=== PATIENT | female | born 1950 | race American Indian/Alaskan Native ===

== ENCOUNTER 2018-03-15 07:17 | Day surgery (SDC) | payer MEDICARE, OTHER ==
[2018-03-15] MEDS ORDERED: Propofol 10 mg/ml Inj (20 ML) ONE (08:30)
[2018-03-15] MEDS ORDERED: Lidocaine 2% Inj (20ml) ONE (08:31)
[2018-03-15] MEDS ORDERED: Sodium Chloride 0.9% 1,000 ML IV SCH (09:30)
[2018-03-15 10:38] VITALS: BP 119/72; PULSE 59; RESP 16; TEMP 97.3; O2SAT 100
== END 2018-03-15 11:39 | disposition home or self-care (01) ==
LOC: ENDO 07:17
PROVIDERS: ATTEND Internal Medicine Gastroenterology
DX: Z12.11 Encounter for screening for malignant neoplasm of colon (principal); D12.4 Benign neoplasm of descending colon; K57.30 Diverticulosis of large intestine without perforation or abscess without bleeding; K29.50 Unspecified chronic gastritis without bleeding; B96.81 Helicobacter pylori [H. pylori] as the cause of diseases classified elsewhere; K44.9 Diaphragmatic hernia without obstruction or gangrene; E11.9 Type 2 diabetes mellitus without complications; K64.8 Other hemorrhoids
CPT/HCPCS: 43239; 45380; 82948; 88305; 88342; J2704; J3010; J7030; J7040

== ENCOUNTER 2019-01-03 09:30 | Outpatient (CLI) | payer MEDICARE, OTHER | END 2019-01-03 09:31 | disposition home or self-care (01) | LOC: RAD 09:30 | DX: R92.2 Inconclusive mammogram (principal) ==